=== PATIENT | male | born 1945 | race Caucasian/White ===

== ENCOUNTER → 2020-10-26 | Outpatient (REF) | payer MEDICARE | LOC: M LAB REF 16:41 | PROVIDERS: ATTEND Internal Medicine | DX: R41.89 Other symptoms and signs involving cognitive functions and awareness (principal) ==

== ENCOUNTER → 2020-11-02 | Outpatient (CLI) | payer MEDICARE ==
--- NOTE | 2020-11-02 10:28 | REP ---
INDICATION: COLLARBONE PAIN, S/P FALL COMPARISON: None. TECHNIQUE: PA and lateral. FINDINGS: The mediastinum and cardiac silhouette are normal. The lung juarez are clear and without acute consolidation, effusion, or pneumothorax. The skeletal structures are intact and normal. IMPRESSION: No acute cardiopulmonary process. Skeletal structures are grossly intact and normal. <Electronically signed by Piero Velez > 11/02/20 1024
== END ==
LOC: M PLAIMG 09:53
PROVIDERS: ATTEND Physician Assistant Medical
DX: M25.519 Pain in unspecified shoulder (principal)

== ENCOUNTER 2020-12-07 19:18 | Inpatient (IN) | payer MEDICARE ==
[~2020-12-07] VITALS: Ht 175.3 cm; Wt 103.2 kg
--- NOTE | 2020-12-07 21:05 | REPVR ---
PROCEDURE INFORMATION: Exam: CT Head Without Contrast Exam date and time: 12/07/2020 8:18 PM Age: 74 years old Clinical indication: Injury or trauma; Fall; Blunt trauma (contusions or hematomas) TECHNIQUE: Imaging protocol: Computed tomography of the head without contrast. Radiation optimization: All CT scans at this facility use at least one of these dose optimization techniques: automated exposure control; mA and/or kV adjustment per patient size (includes targeted exams where dose is matched to clinical indication); or iterative reconstruction. COMPARISON: No relevant prior studies available. FINDINGS: Brain: Mild volume loss. Minimal decreased attenuation of the supratentorial white matter is likely secondary to chronic microvascular ischemia. No acute intracranial hemorrhage, midline shift or significant intracranial mass effect. Cerebral ventricles: No hydrocephalus. Paranasal sinuses: Visualized sinuses are unremarkable. No fluid levels. Mastoid air cells: Visualized mastoid air cells are well aerated. Bones/joints: Hyperostosis frontalis interna. Soft tissues: Right parietal scalp soft tissue injury. IMPRESSION: No acute intracranial abnormality. Electronically signed by: Sohail Mackey On 12/07/2020 21:05:09 PM
--- NOTE | 2020-12-07 21:12 | REPVR ---
PROCEDURE INFORMATION: Exam: CT Cervical Spine Without Contrast Exam date and time: 12/07/2020 8:18 PM Age: 74 years old Clinical indication: Injury or trauma; Fall; Blunt trauma TECHNIQUE: Imaging protocol: Computed tomography images of the cervical spine without contrast. Radiation optimization: All CT scans at this facility use at least one of these dose optimization techniques: automated exposure control; mA and/or kV adjustment per patient size (includes targeted exams where dose is matched to clinical indication); or iterative reconstruction. COMPARISON: CR Chest, 2 view PA, Lat 11/02/2020 10:16 AM FINDINGS: Bones/joints: Mild dextroconvex curvature. Non-specific straightening. Grade 1 anterolisthesis of C3 on C4 and C4 on C5. Vertebral body heights are preserved. Moderate degenerative change about the dens. Mild to moderate prevertebral osteophytosis. There are bilateral facet joint degenerative changes. No acute cervical spine fracture. Discs/Spinal canal/Neural foramina: No gross high-grade central canal stenosis within limitations of technique. Multilevel cervical foraminal stenoses. Lungs: Lung apices are normal. Pleural spaces: No visible pneumothorax. Vasculature: Vascular calcification. Soft tissues: Unremarkable. IMPRESSION: No acute cervical spine fracture. Electronically signed by: Sohail Mackey On 12/07/2020 21:11:51 PM
--- NOTE | 2020-12-08 00:24 | REPVR ---
PROCEDURE INFORMATION: Exam: XR Chest Exam date and time: 12/08/2020 12:01 AM Age: 74 years old Clinical indication: Other: Syncope; Additional info: Syncope/near-syncope TECHNIQUE: Imaging protocol: XR of the chest. Views: 1 view. COMPARISON: CR Chest, 2 view PA, Lat 11/02/2020 10:16 AM FINDINGS: Lungs: Right perihilar linear atelectasis or scarring. No consolidation. Pleural spaces: Unremarkable. No pleural effusion. No pneumothorax. Heart/Mediastinum: Stable cardiac silhouette. Vasculature: Elongation of the thoracic aorta with calcification. Diaphragm: Elevation of the right hemidiaphragm. Bones/joints: Unremarkable. IMPRESSION: No acute cardiopulmonary process. Electronically signed by: Sohail Mackey On 12/08/2020 00:23:30 AM
[2020-12-08 01:29] LABS: BASO # 0.1 10^3/uL (0.0-0.2); BASO % 1.1 % (0.0-1.0); EOS # 0.5 10^3/uL (0.0-0.5); EOS % 4.9 % (0.0-3.0); HEMATOCRIT 40.2 % (42.0-52.0); HEMOGLOBIN 13.3 g/dl (13.5-17.5); LYMPH # 3.5 10^3/uL (1.5-5.0); LYMPH % 38.4 % (24.0-44.0); MEAN CORPUSCULAR HEMOGLOBIN 30.1 pg (27.0-33.0); MEAN CORPUSCULAR HGB CONC 33.1 g/dl (32.0-36.5); MONO # 0.9 10^3/uL (0.0-0.8); MONO % 9.7 % (2.0-8.0); NEUTROPHILS # 4.2 10^3/uL (1.5-8.5); NEUTROPHILS % 45.6 % (36.0-66.0); PLATELET COUNT, AUTOMATED 291 10^3/uL (150-450); RED BLOOD COUNT 4.42 10^6/uL (4.30-6.10); WHITE BLOOD COUNT 9.2 10^3/uL (4.0-10.0)
[2020-12-08 01:55] LABS: AMPHETAMINES LEVEL URINE NEGATIVE (NEGATIVE); BARBITURATES URINE NEGATIVE (NEGATIVE); BENZODIAZEPINES URINE NEGATIVE (NEGATIVE); CANNABINOIDS URINE NEGATIVE (NEGATIVE); COCAINE METABOLITE URINE NEGATIVE (NEGATIVE); METHADONE URINE NEGATIVE (NEGATIVE); OPIATES URINE NEGATIVE (NEGATIVE); PHENCYCLIDINE URINE NEGATIVE (NEGATIVE)
[2020-12-08] MEDS ORDERED: AMLO1TAB25 PO ×2 (02:05→06:47)
[2020-12-08] MEDS ORDERED: ESCI5SOL3 PO (02:05)
[2020-12-08] MEDS ORDERED: LEVO125T4 PO (02:05)
[2020-12-08] MEDS ORDERED: METO1TAB32 PO ×2 (02:05→06:47)
[2020-12-08] MEDS ORDERED: METF500T13 PO (02:05)
[2020-12-08] MEDS ORDERED: ASPI81CH33 PO (02:05)
[2020-12-08] MEDS ORDERED: ATOR1TAB21 PO ×2 (02:05→06:47)
[2020-12-08 02:14] LABS: BLOOD UREA NITROGEN 13 MG/DL (7-18); CALCIUM LEVEL 9.4 MG/DL (8.8-10.2); CARBON DIOXIDE LEVEL 30 MEQ/L (21-32); CHLORIDE LEVEL 103 MEQ/L (98-107); CK-MB VALUE MASS 25.7 NG/ML (<3.6); CPK CREATINE PHOSPHOKINASE 852 U/L (39-308); CREATININE FOR GFR 0.68 MG/DL (0.70-1.30); ETHYL ALCOHOL (ETHANOL) < 0.003 % (0.000-0.010); FREE T4 0.95 NG/DL (0.76-1.46); GLOMERULAR FILTRATION RATE > 60.0 (>42); GLUCOSE, FASTING 99 MG/DL (70-100); MB/CK RELATIVE INDEX 3.02 (< OR =4); POTASSIUM SERUM 4.6 MEQ/L (3.5-5.1); SODIUM LEVEL 137 MEQ/L (136-145); TROPONIN I < 0.02 NG/ML (< 0.10)
[2020-12-08 02:26] LABS: RSV AMPLIFICATION NEGATIVE (NEGATIVE)
[2020-12-08] MEDS: HumaLOG INSULIN (NovoLOG) PER UNIT SC SCH ×2 (06:00→12:00)
[2020-12-08] MEDS ORDERED: GLUCOSE 4GM CHEW TABLET PO PRN (06:15)
[2020-12-08] MEDS ORDERED: GLUCAGON INJ 1MG VIAL SC PRN (06:15)
[2020-12-08] MEDS ORDERED: DEXTROSE 50% 50 ML SYRINGE IV PRN (06:15)
--- NOTE | 2020-12-08 06:32 | HPEPDOC ---
[facility] Medical History & Physical Date of Admission Dec 08, 2020 Date of Service: Dec 08, 2020 Attending Physician: LUCIAN PEREZ MD History and Physical CC: Mechanical fall HISTORY OF PRESENT ILLNESS: This is a very pleasant 74-year-old elderly male who presents to [facility] ER with chief complaint of fall. Patient states that he recently moved here from [facility] and likes to walk around the new neighborhood. He states that earlier today when he was walking around the neighborhood going up on an incline he tripped over a rock and fell. He states that everything happened so fast he does not remember how he fell but he did hit the back of his head. He denies losing consciousness. He also denies feeling dizzy, presyncopal or syncopal, vision changes prior to fall. Imaging cervical spine. In the ER patient had head CT without contrast as well as a CT of the cervical spine which did not show any acute abnormalities. He was noted to have elevated CK without any signs of rhabdo. Of note, patient has slow speech and sometimes has difficult time with word finding however patient states that he has had a speech impediment since he was young and that this is his baseline. REVIEW OF SYSTEMS: General: Denies fever, shaking chills, unintentional weight loss HEENT: Denies changes in vision including blurry vision or double vision, headache, or hearing loss nasal congestion or sore throat. Heart: Denies chest pain or chest pressure or discomfort, or palpitations, or lo wer extremity edema Pulm: Denies cough or sputum production or shortness of breath GI: Denies nausea vomiting diarrhea abdominal pain or bloody stools Psych: Denies sadness or loss of interest in doing things, no thoughts of self- harm or suicidal ideation PAST MEDICAL HISTORY: HTN DM2 HLD SURGICAL HISTORY: Thyrodeictomy Bilateral carpel tunnel FAMILY HISTORY: Mother: . COPD Father. . COPD. Lung ca Daughter: healthy SOCIAL HISTORY: 1986 quit smoker, prior 1.5 pack per day hx; social etoh use; denies illicit drug use. Worked as delivery at a [employer] PHYSICAL EXAM: VS: SEE BELOW GENERAL: The patient is a well-developed, well-nourished in no apparent distress. AAOx3 NEURO: No focal neurological deficits, cranial nerves II to XII conducted within normal limits. Strength 5/5 throughout. Sensation intact throughout. Does have low speech with word finding diffi culties. HEENT: Head is normocephalic and atraumatic. Tenderness on palpation of occipital region. Extraocular muscles are intact. Pupils are equal, round, and reactive to light and accommodation. Nares appears normal. Moist mucous membranes. PULM: Clear to auscultation bilaterally. No wheezing, rhonchi or rales appreciated.. CARDIO: Normal S1, S2. no significant murmurs, gallops, rubs or clicks. No signs of peripheral edema ABDOMEN: Soft, nontender, and nondistended. Normal bowel sounds. No significant organomegaly appreciated. EXTREMITIES: No cyanosis, clubbing, rash, lesions. IMAGING: Cervical spine CT without contrast impression: No acute cervical spine fracture Head CT without contrast impression: No acute intracranial abnormality Chest x-ray impression: No acute cardiopulmonary process ASSESSMENT AND PLAN: This is a 74-year-old elderly male who presents to [facility] ER status post mechanical fall. CT head without contrast and CT cervical spine did not show any intracranial bleed or fractures. He is noted to have elevated CK without any signs of rhabdomyolysis. Hospitalist team was asked to admit the patient for further management of his care. Mechanical fall Initial CT brain without contrast not show any acute abnormalities. Patient AAOX3. Will repeat CT in a.m. Neurochecks every 4 hours. Bedrest with fall precautions. PT/OT eval and treat Slow speech with word finding difficulties Patient states this is his baseline as he has a speech impediment since he was young. Although suspicion for an acute stroke is lower on differential, will order MRI, carotid U/S, ECHO- am team to follow up npo until after ST eval and recs Elevated CK Fluids at 100 cc/h. No signs of rhabdomyolysis HTN-continue home meds HLD- hold atorvastatin for now DM2 insulin sliding scale FSBS every 6+ hypoglycemic protocol DVT ppx: Teds SCDs Vital Signs Vital Signs Date Time Temp Pulse Resp B/P (MAP) Pulse Ox O2 Delivery O2 Flow Rate FiO2 12/08/20 05:45 73 169/104 (125) 97 Room Air 12/08/20 05:30 16 12/07/20 19:18 97.6 Laboratory Data Labs 24H Laboratory Tests 2 12/08/20 00:38: Coronavirus (COVID-19)(PCR) NEGATIVE, Influenza Type A (RT-PCR) NEGATIVE, Influenza Type B (RT-PCR) NEGATIVE, Respiratory Syncytial Virus (PCR) NEGATIVE 12/08/20 01:10: Immature Granulocyte % (Auto) 0.3, Neutrophils (%) (Auto) 45.6, Lymphocytes (%) (Auto) 38.4, Monocytes (%) (Auto) 9.7H, Eosinophils (%) (Auto) 4.9H, Basophils (%) (Auto) 1.1H, Neutrophils # (Auto) 4.2, Lymphocytes # (Auto) 3.5, Monocytes # (Auto) 0.9H, Eosinophils # (Auto) 0.5, Basophils # (Auto) 0.1, Nucleated Red Blood Cells % (auto) 0.0, Anion Gap 4L, Glomerular Filtration Rate > 60.0, Calcium Level 9.4, Total Creatine Kinase 852H, Creatine Kinase MB 25.7H, Creatine Kinase MB Relative Index 3.02, Troponin I < 0.02, Thyroid Stimulating Hormone (TSH) 4.970H, Free Thyroxine 0.95, Urine Opiates Screen NEGATIVE, Urine Methadone Screen NEGATIVE, Urine Barbiturates Screen NEGATIVE, Urine Phencyclidine Screen NEGATIVE, Urine Amphetamines Screen NEGATIVE, Urine Benzodiazepines Screen NEGATIVE, Urine Cocaine Metabolite Screen NEGATIVE, Urine Cannabinoids Screen NEGATIVE, Ethyl Alcohol Level < 0.003 12/08/20 01:31: Bedside Glucose (Misc Panel) 99 CBC/BMP Laboratory Tests 12/08/20 01:10 Home Medications Scheduled Amlodipine Besylate (Amlodipine Besylate) 10 Mg Tablet, 1 TAB PO DAILY Aspirin (Aspirin) 81 Mg Tab.chew, 1 TAB PO DAILY for pain Atorvastatin Calcium (Atorvastatin Calcium) 20 Mg Tablet, 20 MG PO DAILY Escitalopram Oxalate (Escitalopram Oxalate) 5 Mg/5 Ml Solution, 5 MG PO DAILY Levothyroxine Sodium (Levothyroxine Sodium) 125 Mcg Tablet, 1 TAB PO DAILY Metformin HCl (Metformin HCl) 500 Mg Tablet, 500 MG PO BID Metoprolol Succinate (Metoprolol Succinate) 25 Mg Tab.er.24h, 1 TAB PO DAILY Allergies Coded Allergies: No Known Allergies (Unverified , 12/07/20) GME ATTESTATION GME ATTESTATION My faculty preceptor for this patient encounter was physically present during the encounter and was fully available. All aspects of the patient interview, examination, medical decision making process, and medical care plan development were reviewed and approved by the faculty preceptor. The faculty preceptor is aware and concurs with the plan as stated in the body of this note and will a ttest to such by his/her cosignature. Honorio Whaley DO Dec 08, 2020 06:32
[2020-12-08] MEDS ORDERED: SYNT125T PO (06:47)
[2020-12-08] MEDS ORDERED: FLOM0.4C39 PO (06:47)
[2020-12-08] MEDS ORDERED: LEXA5TAB13 PO (06:47)
[2020-12-08] MEDS ORDERED: ASPI-161 PO (06:47)
[2020-12-08] MEDS ORDERED: MAGN1TAB26 PO (06:47)
[2020-12-08] MEDS ORDERED: METF-839 PO (06:47)
[2020-12-08] MEDS ORDERED: MIRT1TAB PO (06:47)
[2020-12-08] MEDS ORDERED: HOME MED LIST COMPLETE! XX SCH (06:50)
[2020-12-08 07:39] LABS: CK-MB VALUE MASS 20.4 NG/ML (<3.6); CPK CREATINE PHOSPHOKINASE 841 U/L (39-308); MB/CK RELATIVE INDEX 2.43 (< OR =4); TROPONIN I < 0.02 NG/ML (< 0.10)
--- NOTE | 2020-12-08 07:55 | ECGEPIP ---
[facility] - ED Test Date: 2020-12-08 Pat Name: HAYDEN HORN Department: Room: [place] [address] Gender: Male Director [employer]: DIANELYS MELLOB: 1945 Requested By: SHAKIRA Reeder Order Number: [id number] Reading MD: Jannette Corona Measurements Intervals [place] Rate: 66 P: 62 HI: 280 QRS: -27 QRSD: 104 T: 127 QT: 440 QTc: 461 Interpretive Statements Sinus rhythm with 1st degree AV block Possible Left atrial enlargement Left ventricular hypertrophy with repolarization abnormality ( R in aVL ) vs i ischemia, clinical correlation no prior Electronically Signed on 12-08-2020 7:55:27 EDT by Jannette Corona
--- NOTE | 2020-12-08 08:07 | REPVR ---
PROCEDURE INFORMATION: Exam: CT Head Without Contrast Exam date and time: 12/08/2020 7:30 AM Age: 74 years old Clinical indication: Injury or trauma; Fall; Concussion/head injury; Consciousness not specified; Injury details: F/u TECHNIQUE: Imaging protocol: Computed tomography of the head without contrast. Radiation optimization: All CT scans at this facility use at least one of these dose optimization techniques: automated exposure control; mA and/or kV adjustment per patient size (includes targeted exams where dose is matched to clinical indication); or iterative reconstruction. COMPARISON: CT Head without contrast 12/07/2020 8:11 PM FINDINGS: Brain: Normal. No hemorrhage. Unremarkable white matter. No mass effect. Cerebral ventricles: The ventricles and sulci are stable in configuration. Paranasal sinuses: Visualized sinuses are unremarkable. No fluid levels. Mastoid air cells: Visualized mastoid air cells are well aerated. Bones/joints: There is again hyperostosis frontalis interna. No skull fracture is identified. Soft tissues: There is again a right parietal scalp contusion. IMPRESSION: No CT evidence for acute intracranial abnormality or significant change since one day prior. Electronically signed by: Da Flynn On 12/08/2020 08:07:19 AM
--- NOTE | 2020-12-08 08:07 | REP ---
INDICATION: FALL COMPARISON: None. TECHNIQUE: Poole scale and color Doppler evaluation using linear high frequency transducer Findings: FINDINGS: Two-dimensional poole scale and color images demonstrate normal arterial lumen with laminar flow and no appreciable narrowing. Color Doppler interrogation demonstrates normal arterial wave patterns and velocities with no significant spectral broadening. Normal flow direction is appreciated in the bilateral vertebral arteries. ICA peak systolic velocity: Right 55.8 cm/s; Left 57.8 cm/s ICA diastolic velocity: Right 18.0 cm/s; Left 21.2 cm/s ECA peak systolic velocity: Right 70.0 cm/s; Left 65.9 cm/s CCA peak systolic velocity: Right 60.3 cm/s; Left 55.8 cm/s ICA/CCA ratio: Right 0.93 cm/s; Left 1.04 cm/s IMPRESSION: No hemodynamically significant areas of narrowing or stenosis appreciated. Based on set standards narrowing falls within the less than 50% range. <Electronically signed by Piero Velez > 12/08/20 0804
[2020-12-08 08:30] VITALS: BP 152/90
[2020-12-08] MEDS: NS 1,000 ML IV SCH ×3 (08:45→21:27)
--- NOTE | 2020-12-08 13:20 | REPVR ---
PROCEDURE INFORMATION: Exam: MR Head Without Contrast Exam date and time: 12/08/2020 12:27 PM Age: 74 years old Clinical indication: Injury or trauma; Blunt trauma (contusions or hematomas); Without loss of consciousness; Injury date: 12/07/20; Injury details: PT states HX of loss of balance, left side weakness and recent fall yesterday evening, ; additional info: R/O CVA TECHNIQUE: Imaging protocol: MR of the head without contrast. COMPARISON: CT Head without contrast 12/08/2020 6:01 AM FINDINGS: Brain: The diffusion weighted images demonstrate no evidence for acute infarct. The cerebellar tonsils are normal in position. The major intracranial vascular flow voids appear grossly patent. There are mild degrees of increased signal in the periventricular white matter with a few tiny foci of scattered increased signal in the deep subcortical white matter bilaterally, most suggestive of chronic microvascular ischemic disease in a patient of this age. No intracranial hemorrhage or extraaxial collection is identified. There is no significant intracranial mass effect, and no mass is identified. Small area of encephalomalacia in the left cerebellum suggests remote infarct here. Cerebral ventricles: The ventricles and sulci are stable in configuration. Bones/joints: Hyperostosis frontalis interna is again noted. Paranasal sinuses: Normal as visualized. No acute sinusitis. Mastoid air cells: Normal as visualized. No mastoid effusion. Orbital cavity: Unremarkable. Soft tissues: There is again evidence of a right parietal scalp contusion. IMPRESSION: No evidence for acute infarct, hemorrhage or mass. Chronic findings as described. Electronically signed by: Da Flynn On 12/08/2020 13:19:47 PM
[2020-12-08 17:10] VITALS: BP 158/58
[2020-12-08 20:30] LABS: BLOOD UREA NITROGEN 8 MG/DL (7-18); CALCIUM LEVEL 8.9 MG/DL (8.8-10.2); CARBON DIOXIDE LEVEL 25 MEQ/L (21-32); CHLORIDE LEVEL 109 MEQ/L (98-107); CREATININE FOR GFR 0.65 MG/DL (0.70-1.30); GLOMERULAR FILTRATION RATE > 60.0 (>42); GLUCOSE, FASTING 97 MG/DL (70-100); POTASSIUM SERUM 3.9 MEQ/L (3.5-5.1); SODIUM LEVEL 140 MEQ/L (136-145)
[2020-12-08] MEDS ORDERED: HumaLOG INSULIN (NovoLOG) PER UNIT SC SCH (21:00)
[2020-12-08] MEDS ORDERED: MIRTAZAPINE 7.5MG PER 1/2 TABLET PO SCH (21:00)
[2020-12-08 21:06] LABS: APPEARANCE, URINE CLEAR (CLEAR); BACTERIA, URINE AUTO NEGATIVE (NEGATIVE); BILIRUBIN, URINE AUTO NEGATIVE (NEGATIVE); BLOOD, URINE BLOOD NEGATIVE (NEGATIVE); COLOR, URINE STRAW (YELLOW); GLUCOSE, URINE (UA) AUTO NEGATIVE (NEGATIVE); KETONE, URINE AUTO NEGATIVE (NEGATIVE); LEUKOCYTE ESTERASE, URINE AUTO NEGATIVE (NEGATIVE); NITRITE, URINE AUTO NEGATIVE (NEGATIVE); PROTEIN, URINE AUTO NEGATIVE (NEGATIVE); RBC, URINE AUTO 0 /HPF (0-3); SPECIFIC GRAVITY URINE AUTO 1.003 (1.002-1.035); SQUAMOUS EPITHELIAL CELL UR AU 0 /HPF (0-6); UROBILINOGEN, URINE AUTO 0.2 mg/dL (0.0-2.0); WBC, URINE AUTO 0 /HPF (0-3)
[2020-12-08 22:00] VITALS: BP 125/50
[2020-12-09 06:00] VITALS: BP 150/70
[2020-12-09] MEDS ORDERED: LEVOTHYROXINE 125MCG TABLET (0.125MG) PO SCH (06:00)
[2020-12-09 06:32] LABS: HEMATOCRIT 37.8 % (42.0-52.0); HEMOGLOBIN 12.7 g/dl (13.5-17.5); MEAN CORPUSCULAR HEMOGLOBIN 30.5 pg (27.0-33.0); MEAN CORPUSCULAR HGB CONC 33.6 g/dl (32.0-36.5); MEAN CORPUSCULAR VOLUME 90.9 fl (80.0-96.0); PLATELET COUNT, AUTOMATED 115 10^3/uL (150-450); RED BLOOD COUNT 4.16 10^6/uL (4.30-6.10)
[2020-12-09 06:47] LABS: BLOOD UREA NITROGEN 9 MG/DL (7-18); CALCIUM LEVEL 8.6 MG/DL (8.8-10.2); CARBON DIOXIDE LEVEL 23 MEQ/L (21-32); CHLORIDE LEVEL 110 MEQ/L (98-107); GLOMERULAR FILTRATION RATE > 60.0 (>42); GLUCOSE, FASTING 91 MG/DL (70-100); POTASSIUM SERUM 4.1 MEQ/L (3.5-5.1); SODIUM LEVEL 141 MEQ/L (136-145)
[2020-12-09] MEDS: HumaLOG INSULIN (NovoLOG) PER UNIT SC SCH ×2 (07:30→12:00)
[2020-12-09] MEDS ORDERED: ATORVASTATIN 20 MG TAB PO SCH (09:00)
[2020-12-09] MEDS ORDERED: ASPIRIN 81MG ENTERIC TABLET PO SCH (09:00)
[2020-12-09] MEDS ORDERED: TAMSULOSIN 0.4 MG CAP PO SCH (09:00)
[2020-12-09] MEDS ORDERED: ESCITALOPRAM OXALATE 5MG TABLET (LEXAPRO) PO SCH (09:00)
[2020-12-09] MEDS ORDERED: METOPROLOL SUCC *XL* 25MG TAB (TopROL *XL*) PO SCH (09:00)
[2020-12-09 09:49] VITALS: BP 154/90
[2020-12-09] MEDS ORDERED: FLUBLOK(EGG FREE)(QUAD)INFLUENZA VACC 0.5ML SYRINGE 18YRS & OLDER IM ONE (12:00)
--- NOTE | 2020-12-09 14:58 | DS.PDOC ---
Discharge Summary General Date of Admission Dec 08, 2020 at 06:10 Date of Discharge 12/09/20 Discharge Summary PROCEDURES PERFORMED DURING STAY: [None]. DISCHARGE DIAGNOSES: #HTN #DM #HLD COMPLICATIONS/CHIEF COMPLAINT: FALL. HISTORY OF PRESENT ILLNESS: This is a very pleasant 74-year-old elderly male who presents to [facility] ER with chief complaint of fall. Patient states that he recently moved here from [facility] and likes to walk around the new neighborhood. He states that earlier today when he was walking around the neighborhood going up on an incline he tripped over a rock and fell. He states that everything happened so fast he does not remember how he fell but he did hit the back of his head. He denies losing consciousness. He also denies feeling dizzy, presyncopal or syncopal, vision changes prior to fall. Imaging cervical spine. In the ER patient had head CT without contrast as well as a CT of the cervical spine which did not show any acute abnormalities. He was noted to have elevated CK without any signs of rhabdo. Of note, patient has slow speech and sometimes has diff icult time with word finding however patient states that he has had a speech impediment since he was young and that this is his baseline. HOSPITAL COURSE: Patient admitted for further evaluation and treatment. Patient seen by physical therapy with recommendations for discharge home. Patient had no further issues with dizziness, syncope or presyncope. Hospital stay was otherwise unremarkable. DISCHARGE MEDICATIONS: Please see below. ALLERGIES: Please see below. PHYSICAL EXAMINATION ON DISCHARGE: Vital Signs: reviewed General: NAD, sitting comfortably in chair HEENT: NC/AT, EOMI Chest: lungs CTA B/L Heart: +S1S2, RRR Abd: soft, NT, ND, +BS Ext: no edema Skin: no rashes Psych: AAOx3 LABORATORY DATA: Please see below. ACTIVITY: [As tolerated]. DISPOSITION: 01 Home, Self-Care. DISCHARGE INSTRUCTIONS: 1. Follow up PCP in 3-5 days DISCHARGE CONDITION: [Stable]. TIME SPENT ON DISCHARGE: 35 minutes. Vital Signs/I&Os Vital Signs Date Time Temp Pulse Resp B/P (MAP) Pulse Ox O2 Delivery O2 Flow Rate FiO2 12/09/20 09:49 87 154/90 12/09/20 06:00 97.0 18 96 Room Air I&O- Last 24 Hours up to 6 AM 12/09/20 05:59 Intake Total 1920 ml Output Total 1300 ml Balance 620 ml Laboratory Data Labs 24H Laboratory Tests 2 12/08/20 17:19: Bedside Glucose (Misc Panel) 91 12/08/20 19:41: Anion Gap 6L, Glomerular Filtration Rate > 60.0, Calcium Level 8.9, Magnesium Level 2.0 12/08/20 20:56: Urine Color STRAW, Urine Appearance CLEAR, Urine pH 7.0, Urine Specific [place] 1.003, Urine Protein NEGATIVE, Urine Glucose (Auto)(UA) NEGATIVE, Urine Ketones (Auto) NEGATIVE, Urine Blood NEGATIVE, Urine Nitrite NEGATIVE, Urine Bilirubin NEGATIVE, Urine Urobilinogen 0.2, Urine Leukocyte Esterase (Auto) NEGATIVE, Urine WBC (Auto) 0, Urine RBC (Auto) 0, Urine Hyaline Casts (Auto) 0, Urine Bacteria (Auto) NEGATIVE, Urine Squamous Epithelial Cells 0, Urine Sperm (Auto) 12/08/20 21:32: Bedside Glucose (Misc Panel) 93 12/09/20 05:39: Nucleated Red Blood Cells % (auto) 0.0, Anion Gap 8, Glomerular Filtration Rate > 60.0, Calcium Level 8.6L CBC/BMP Laboratory Tests 12/08/20 19:41 12/09/20 05:39 FSBS Laboratory Tests Test 12/08/20 17:19 12/08/20 21:32 Range/Units Bedside Glucose (Misc Panel) 91 93 83-110 MG/DL Discharge Medications Scheduled Amlodipine Besylate (Amlodipine Besylate) 10 Mg Tablet, 10 MG PO DAILY, (Reported) Aspirin (Aspirin EC) 81 Mg Tablet.dr, 81 MG PO DAILY, (Reported) Atorvastatin Calcium (Atorvastatin Calcium) 20 Mg Tablet, 20 MG PO DAILY, (Reported) Escitalopram Oxalate (Lexapro) 5 Mg Tablet, 5 MG PO DAILY, (Reported) Levothyroxine Sodium (Synthroid) 125 Mcg Tablet, 125 MCG PO DAILY, (Reported) Magnesium Oxide (Magnesium Oxide) 400 Mg Tablet, 400 MG PO BID, (Reported) Metformin HCl (Metformin HCl) 500 Mg Tablet, 500 MG PO BID, (Reported) Metoprolol Succinate (Metoprolol Succinate) 25 Mg Tab.er.24h, 25 MG PO DAILY, ( Reported) Mirtazapine (Mirtazapine) 7.5 Mg Tablet, 7.5 MG PO QHS, (Reported) Tamsulosin HCl (Flomax) 0.4 Mg Capsule, 0.4 MG PO DAILY, (Reported) Allergies Coded Allergies: No Known Allergies (Unverified , 12/07/20) ELIE RAMESH MD Dec 09, 2020 14:58
--- NOTE | 2020-12-10 11:01 | ECGEPIP ---
[facility] Test Date: 2020-12-09 Pat Name: HAYDEN HORN Department: Room: [place] [address] Gender: Male [employer]: ECG : 1945 Requested By: Honorio Whaley Order Number: [id number] Reading MD: Juan Francisco Ochoa Measurements Intervals [place] Rate: 83 P: 59 MO: 256 QRS: -30 QRSD: 108 T: 108 QT: 378 QTc: 444 Interpretive Statements Sinus rhythm with 1st degree AV block Possible Left atrial enlargement Left axis deviation Left ventricular hypertrophy with repolarization abnormality ( R in aVL ) Consider anterolateral myocardial ischemia. No significant change compared with 12/08/2020. Electronically Signed on 12-10-2020 11:00:50 EDT by Juan Francisco Ochoa
--- NOTE | 2020-12-10 20:48 | ECHO ---
ECHOCARDIOGRAM DATE OF PROCEDURE: 12/08/2020 Age: 74 Gender: Male Height: Weight: REFERRING PHYSICIAN: Dr. John Davidson PATIENT LOCATION: Room 4202 REASON FOR TESTING: Syncope 2D MEASUREMENTS: IVS 1.5 cm LV 3.8 cm LVPW 1.5 cm LA 3.2 cm Aorta 3.5 cm DOPPLER MEASUREMENTS: Peak velocity across the aortic valve 1.9 m/s Peak velocity across the LVOT 0.88 m/s Peak gradient across the aortic valve 14 mmHg Mean gradient across the aortic valve 7 mmHg Mitral E 0.76 Mitral A 1.1 with a ratio of 0.7 2D COMMENTS: 1. Moderately increased left ventricular wall thickness with normal left ventricular size and normal global left ventricular systolic function. The estimated left ventricular systolic ejection fraction is 60% to 65%. 2. Normal left atrial. 3. Normal right atrium and right ventricle. 4. The atrial septum appeared to be normal without evidence of defect or shunt. 5. Normal aortic root. 6. No pericardial effusion seen. 7. Mildly calcified aortic valve with normal leaflet excursion. 8. Mildly calcified mitral annulus with normal anterior mitral valve leaflet motion. Normal tricuspid valve. The pulmonic valve was not well visualized. 9. The inferior vena cava was not well visualized. DOPPLER: No significant valvular regurgitation detected. Abnormal relaxation pattern was noted across the mitral valve leaflets as well as the mitral valve annulus, consistent with features of grade 1 left ventricular diastolic dysfunction. IMPRESSION: 1. Normal global left ventricular systolic function with moderate concentric left ventricular hypertrophy. There are some features of grade 1 left ventricular diastolic dysfunction manifested by abnormal relaxation. 2. Aortic valve sclerosis which reveals aortic stenosis but no aortic regurgitation. 3. Isolated mitral annulus calcification. No evidence of mitral regurgitation or mitral stenosis.
== END 2020-12-09 12:42 | disposition home or self-care (01) | DRG 93 ==
LOC: M ED 19:18 → M ED INP 12-08 06:10 → ENRESERV 12-08 06:24 → M MSPAV 12-08 08:27
PROVIDERS: ADMIT Family Medicine; ATTEND Internal Medicine
DX: R29.6 Repeated falls (principal); S00.93XA Contusion of unspecified part of head, initial encounter; I10 Essential (primary) hypertension; E11.9 Type 2 diabetes mellitus without complications; E78.5 Hyperlipidemia, unspecified; Z90.89 Acquired absence of other organs; W01.0XXA Fall on same level from slipping, tripping and stumbling without subsequent striking against object, initial encounter; Y92.480 Sidewalk as the place of occurrence of the external cause; Z20.822 Contact with and (suspected) exposure to COVID-19; Z79.82 Long term (current) use of aspirin; Z79.84 Long term (current) use of oral hypoglycemic drugs; Z79.899 Other long term (current) drug therapy

== ENCOUNTER → 2021-04-07 | Outpatient (CLI) | payer MEDICARE ==
[~2021-04-07] MED LIST: AMLO1TAB25 PO; ASPI-161 PO; ASPI81CH33 PO; ATOR1TAB21 PO; ESCI5SOL3 PO; FLOM0.4C39 PO; LEVO125T4 PO; LEXA5TAB13 PO; MAGN1TAB26 PO; METF-839 PO; METF500T13 PO; METO1TAB32 PO; MIRT1TAB PO; SYNT125T PO
== END ==
LOC: M WUC 10:43
PROVIDERS: ATTEND Internal Medicine
DX: R05.9 Cough, unspecified (principal); R06.00 Dyspnea, unspecified

== ENCOUNTER → 2021-06-02 | Outpatient (CLI) | payer MEDICARE ==
[~2021-06-02] MED LIST changes: +APPLCAP PO; +E-Z-GAS II EFFERVESCENT PACKET (SODIUM BICARB./CITRIC ACID/SIMETHICONE) As Ordered ONE; +E-Z-HD 98% w/w 340GM SUSP BTL As Ordered ONE; +E-Z-PAQUE 96% w/w SUSP 176GM BTL As Ordered ONE; +LEXA1TAB PO; +OMEP-173 PO
== END ==
LOC: M RAD 09:38
PROVIDERS: ATTEND Internal Medicine Gastroenterology
DX: R13.12 Dysphagia, oropharyngeal phase (principal)

== ENCOUNTER → 2021-06-05 | Outpatient (CLI) | payer MEDICARE ==
[~2021-06-05] MED LIST changes: -E-Z-GAS II EFFERVESCENT PACKET (SODIUM BICARB./CITRIC ACID/SIMETHICONE) As Ordered ONE; -E-Z-HD 98% w/w 340GM SUSP BTL As Ordered ONE; -E-Z-PAQUE 96% w/w SUSP 176GM BTL As Ordered ONE
== END ==
LOC: M LABSMTC 09:46
PROVIDERS: ATTEND Anesthesiology
DX: Z11.52 Encounter for screening for COVID-19 (principal); Z20.822 Contact with and (suspected) exposure to COVID-19

== ENCOUNTER 2021-06-09 13:45 | Day surgery (SDC) | payer MEDICARE ==
[~2021-06-09] VITALS: Ht 175.3 cm; Wt 102.5 kg
[~2021-06-09 13:45] MED LIST changes: +LIDOCAINE 2% 100MG/5ML SDV (FOR ANES.) As Ordered ONE; +NS 1,000 ML IV ONE; +propofoL 200 MG/20 ML VIAL As Ordered ONE
[2021-06-09] MEDS ORDERED: LABETALOL 100MG/20ML VIAL As Ordered ONE (15:18)
[2021-06-09 15:47] VITALS: BP 202/91
[2021-06-09] MEDS ORDERED: LABETALOL 100MG/20ML VIAL IV PRN (16:15)
== END 2021-06-09 16:32 | disposition home or self-care (01) ==
LOC: M OPP 13:45
PROVIDERS: ATTEND Internal Medicine Gastroenterology
DX: K29.70 Gastritis, unspecified, without bleeding (principal); R13.12 Dysphagia, oropharyngeal phase; R13.13 Dysphagia, pharyngeal phase; K74.60 Unspecified cirrhosis of liver; Z79.82 Long term (current) use of aspirin; Z79.899 Other long term (current) drug therapy; Z87.891 Personal history of nicotine dependence

== ENCOUNTER → 2021-11-06 | Outpatient (REF) | payer MEDICARE ==
[~2021-11-06] MED LIST changes: -LIDOCAINE 2% 100MG/5ML SDV (FOR ANES.) As Ordered ONE; -NS 1,000 ML IV ONE; -propofoL 200 MG/20 ML VIAL As Ordered ONE
[2021-11-06 19:42] LABS: ATYPICAL LYMPH 1 % (0-5); BASOPHILS 2 % (0-1); EOSINOPHILS 4 % (0-3); LYMPHOCYTES 65 % (16-44); MONOCYTES 9 % (0-5); NEUTROPHILS 18 % (28-66)
[2021-11-06 19:43] LABS: PLATELET ESTIMATE NORMAL (NORMAL)
== END ==
LOC: M LAB REF 16:18
PROVIDERS: ATTEND Internal Medicine
DX: D72.9 Disorder of white blood cells, unspecified (principal)

== ENCOUNTER → 2021-11-08 | Outpatient (REF) | payer MEDICARE ==
[2021-11-08 10:53] LABS: BASO # 0.1 10^3/uL (0.0-0.2); BASO % 1.3 % (0.0-1.0); EOS # 0.2 10^3/uL (0.0-0.5); HEMATOCRIT 39.8 % (42.0-52.0); HEMOGLOBIN 13.5 g/dl (13.5-17.5); LYMPH # 3.2 10^3/uL (1.5-5.0); LYMPH % 59.4 % (24.0-44.0); MEAN CORPUSCULAR HEMOGLOBIN 31.2 pg (27.0-33.0); MEAN CORPUSCULAR HGB CONC 33.9 g/dl (32.0-36.5); MEAN CORPUSCULAR VOLUME 91.9 fl (80.0-96.0); MONO # 0.5 10^3/uL (0.0-0.8); MONO % 9.6 % (2.0-8.0); NEUTROPHILS # 1.4 10^3/uL (1.5-8.5); NEUTROPHILS % 26.5 % (36.0-66.0); PLATELET COUNT, AUTOMATED 296 10^3/uL (150-450); RED BLOOD COUNT 4.33 10^6/uL (4.30-6.10); WHITE BLOOD COUNT 5.3 10^3/uL (4.0-10.0)
== END ==
LOC: M LAB REF 10:05
PROVIDERS: ATTEND Internal Medicine
DX: D72.9 Disorder of white blood cells, unspecified (principal)

== ENCOUNTER → 2022-04-24 | Outpatient (REF) | payer MEDICARE ==
[2022-04-24 10:52] LABS: BASO # 0.1 10^3/uL (0.0-0.2); EOS # 0.2 10^3/uL (0.0-0.5); EOS % 3.8 % (0.0-3.0); HEMATOCRIT 41.6 % (42.0-52.0); HEMOGLOBIN 13.2 g/dl (13.5-17.5); LYMPH % 48.2 % (24.0-44.0); MEAN CORPUSCULAR HEMOGLOBIN 29.7 pg (27.0-33.0); MEAN CORPUSCULAR HGB CONC 31.7 g/dl (32.0-36.5); MEAN CORPUSCULAR VOLUME 93.7 fl (80.0-96.0); MONO # 0.5 10^3/uL (0.0-0.8); NEUTROPHILS # 2.4 10^3/uL (1.5-8.5); NEUTROPHILS % 38.7 % (36.0-66.0); PLATELET COUNT, AUTOMATED 268 10^3/uL (150-450); RED BLOOD COUNT 4.44 10^6/uL (4.30-6.10); WHITE BLOOD COUNT 6.3 10^3/uL (4.0-10.0)
== END ==
LOC: M LAB REF 10:05
PROVIDERS: ATTEND Internal Medicine
DX: D72.9 Disorder of white blood cells, unspecified (principal); D64.9 Anemia, unspecified

== ENCOUNTER 2022-07-30 12:57 | Emergency (ER) | payer OTHER, MEDICARE ==
[~2022-07-30] VITALS: Ht 175.3 cm; Wt 102.3 kg
[2022-07-30] MEDS ORDERED: ACETAMINOPHEN TAB 650MG DOSE (2X325MG) PO ONE (13:25)
[2022-07-30 14:53] VITALS: BP 217/109
== END 2022-07-30 15:02 | disposition home or self-care (01) ==
LOC: M ED 12:57
DX: S93.401A Sprain of unspecified ligament of right ankle, initial encounter (principal); S92.491A Other fracture of right great toe, initial encounter for closed fracture; W10.8XXA Fall (on) (from) other stairs and steps, initial encounter; Y92.009 Unspecified place in unspecified non-institutional (private) residence as the place of occurrence of the external cause; Y93.01 Activity, walking, marching and hiking; Y99.8 Other external cause status; I25.10 Atherosclerotic heart disease of native coronary artery without angina pectoris; I10 Essential (primary) hypertension; Z85.46 Personal history of malignant neoplasm of prostate; K21.9 Gastro-esophageal reflux disease without esophagitis; E03.9 Hypothyroidism, unspecified; Z79.82 Long term (current) use of aspirin; Z79.899 Other long term (current) drug therapy

== ENCOUNTER → 2022-11-07 | Outpatient (REF) | payer MEDICARE ==
[2022-11-07 10:04] LABS: BASO # 0.1 10^3/uL (0.0-0.2); BASO % 1.7 % (0.0-1.0); EOS # 0.2 10^3/uL (0.0-0.5); EOS % 3.4 % (0.0-3.0); HEMATOCRIT 41.9 % (42.0-52.0); HEMOGLOBIN 13.7 g/dl (13.5-17.5); LYMPH # 2.7 10^3/uL (1.5-5.0); LYMPH % 56.7 % (24.0-44.0); MEAN CORPUSCULAR HGB CONC 32.7 g/dl (32.0-36.5); MEAN CORPUSCULAR VOLUME 94.8 fl (80.0-96.0); MONO # 0.4 10^3/uL (0.0-0.8); NEUTROPHILS # 1.4 10^3/uL (1.5-8.5); PLATELET COUNT, AUTOMATED 265 10^3/uL (150-450); RED BLOOD COUNT 4.42 10^6/uL (4.30-6.10); WHITE BLOOD COUNT 4.8 10^3/uL (4.0-10.0)
== END ==
LOC: M LAB REF 09:31
PROVIDERS: ATTEND Internal Medicine
DX: D72.9 Disorder of white blood cells, unspecified (principal)

== ENCOUNTER 2023-03-06 23:28 | Inpatient (IN) | payer MEDICARE ==
[~2023-03-06] VITALS: Ht 175.3 cm; Wt 104.2 kg
[2023-03-07] VITALS (8 sets, daily range): BP systolic 117–146; BP diastolic 52–79; TEMP 97.5–98.1; O2SAT 89–94
[2023-03-07 00:08] LABS: BASO # 0.1 10^3/uL (0.0-0.2); BASO % 0.6 % (0.0-1.0); EOS % 0.3 % (0.0-3.0); HEMATOCRIT 36.7 % (42.0-52.0); HEMOGLOBIN 12.3 g/dl (13.5-17.5); MEAN CORPUSCULAR HEMOGLOBIN 31.1 pg (27.0-33.0); MEAN CORPUSCULAR HGB CONC 33.5 g/dl (32.0-36.5); MEAN CORPUSCULAR VOLUME 92.9 fl (80.0-96.0); MONO # 0.6 10^3/uL (0.0-0.8); MONO % 7.1 % (2.0-8.0); NEUTROPHILS # 5.1 10^3/uL (1.5-8.5); NEUTROPHILS % 65.5 % (36.0-66.0); PLATELET COUNT, AUTOMATED 209 10^3/uL (150-450); RED BLOOD COUNT 3.95 10^6/uL (4.30-6.10); WHITE BLOOD COUNT 7.7 10^3/uL (4.0-10.0)
[2023-03-07] MEDS ORDERED: ACETAMINOPHEN TAB 650MG DOSE (2X325MG) PO ONE (00:25)
[2023-03-07 00:32] LABS: CK-MB VALUE MASS 8.3 NG/ML (<3.6)
[2023-03-07 00:33] LABS: ALBUMIN 3.6 G/DL (3.2-5.2); ALKALINE PHOSPHATASE 66 U/L (46-116); ALT/SGPT 48 U/L (7.0-40); AST/SGOT 47 U/L (<34); BILIRUBIN,DIRECT 0.3 MG/DL (<0.4); BILIRUBIN,TOTAL 0.8 MG/DL (0.3-1.2); BLOOD UREA NITROGEN 8 MG/DL (9-23); CARBON DIOXIDE LEVEL 24 MMOL/L (20-31); CHLORIDE LEVEL 102 MMOL/L (98-107); CREATININE FOR GFR 0.47 MG/DL (0.70-1.30); GLOMERULAR FILTRATION RATE > 60.0 (>42); GLUCOSE, FASTING 119 MG/DL (74-106); POTASSIUM SERUM 4.3 MMOL/L (3.5-5.1); SODIUM LEVEL 135 MMOL/L (136-145)
[2023-03-07 00:36] LABS: CPK CREATINE PHOSPHOKINASE 752 U/L (46-171)
[2023-03-07] MEDS ORDERED: IPRATROPIUM 0.5MG/ALBUTEROL 2.5MG INH SOL UD 3ML (DUONEB) NEB ONE ×2 (01:00)
[2023-03-07] MEDS ORDERED: dexAMETHasone 20MG/5ML VIAL IV ONE (01:10)
[2023-03-07] MEDS ORDERED: COMBIVENT RESPIMAT 100-20MCG INHALER 4GM INH STA (01:36)
[2023-03-07] MEDS ORDERED: ALBUTEROL 90 MCG/ACT 8GM HFA INHALER INH PRN (02:30)
[2023-03-07] MEDS ORDERED: NS 500 ML IV SCH (02:30)
[2023-03-07] MEDS ORDERED: GLUCOSE 4GM CHEW TABLET PO PRN (02:40)
[2023-03-07] MEDS ORDERED: DEXTROSE 50% 50ML SYRINGE IV PRN (02:40)
[2023-03-07] MEDS ORDERED: GLUCAGON INJ 1MG VIAL SC PRN (02:40)
[2023-03-07 02:56] LABS: INR 1.12; PROTHROMBIN TIME 14.1 SECONDS (12.5-14.5)
[2023-03-07 02:57] LABS: PARTIAL THROMBOPLASTIN TIME 40.8 SECONDS (24.8-34.2)
[2023-03-07] MEDS ORDERED: ISOVUE-370 76% 100ML VIAL As Ordered ONE ×2 (02:58→03:15)
[2023-03-07 03:00] LABS: MAGNESIUM LEVEL 1.5 MG/DL (1.8-2.4)
[2023-03-07 03:01] LABS: LDH LACTATE DEHYDROGENASE 177 U/L (120-246)
[2023-03-07 03:01] LABS: D-DIMER QUANT 1.11 ug/mL (<0.5)
[2023-03-07 03:11] LABS: PROCALCITONIN <0.04 ng/ml
[2023-03-07] MEDS ORDERED: REMDESIVIR 200 MG in NS 250 ML IV ONE (05:00)
[2023-03-07] MEDS ORDERED: ACETAMINOPHEN TAB 650MG DOSE (2X325MG) PO PRN (06:00)
[2023-03-07] MEDS ORDERED: LEXA5TAB13 PO (06:26)
[2023-03-07] MEDS ORDERED: TURM500C PO (06:26)
[2023-03-07] MEDS ORDERED: VITA1CAP14 PO (06:26)
[2023-03-07] MEDS ORDERED: HOME MED LIST COMPLETE! XX SCH (06:30)
[2023-03-07] MEDS: INSULIN LISPRO (NovoLOG) PER UNIT SC SCH ×4 (09:05→19:31)
[2023-03-07] MEDS: ENOXAPARIN 40MG/0.4ML SYRINGE (J1650 PER 10MG) SC SCH (09:06)
[2023-03-08] VITALS (9 sets, daily range): BP systolic 139–178; BP diastolic 74–105; TEMP 97.3–98.4; O2SAT 89–96
[2023-03-08] MEDS: REMDESIVIR 100 MG in NS 250 ML IV SCH (05:42)
[2023-03-08 06:33] LABS: ALBUMIN 3.1 G/DL (3.2-5.2); ALKALINE PHOSPHATASE 56 U/L (46-116); ALT/SGPT 45 U/L (7.0-40); AST/SGOT 51 U/L (<34); BILIRUBIN,DIRECT 0.3 MG/DL (<0.4); BILIRUBIN,TOTAL 0.7 MG/DL (0.3-1.2); BLOOD UREA NITROGEN 20 MG/DL (9-23); CALCIUM LEVEL 8.6 MG/DL (8.3-10.6); CARBON DIOXIDE LEVEL 26 MMOL/L (20-31); CHLORIDE LEVEL 105 MMOL/L (98-107); CREATININE FOR GFR 0.48 MG/DL (0.70-1.30); GLOMERULAR FILTRATION RATE > 60.0 (>42); GLUCOSE, FASTING 109 MG/DL (74-106); SODIUM LEVEL 139 MMOL/L (136-145); TOTAL PROTEIN 6.5 G/DL (5.7-8.2)
[2023-03-08] MEDS: ENOXAPARIN 40MG/0.4ML SYRINGE (J1650 PER 10MG) SC SCH (07:33)
[2023-03-08] MEDS: INSULIN LISPRO (NovoLOG) PER UNIT SC SCH ×4 (07:34→20:25)
[2023-03-08] MEDS: ESCITALOPRAM OXALATE 5MG TABLET (LEXAPRO) PO SCH (12:45)
[2023-03-08] MEDS ORDERED: METOPROLOL SUCC *XL* 25MG TAB (TopROL *XL*) PO SCH (12:45)
[2023-03-08] MEDS: LEVOTHYROXINE 125MCG TABLET (0.125MG) PO SCH (14:16)
[2023-03-08] MEDS: ASPIRIN 81MG ENTERIC TABLET PO SCH (14:16)
[2023-03-08] MEDS: OMEPRAZOLE 20MG CAP PO SCH ×2 (14:17→20:25)
[2023-03-08] MEDS: METOPROLOL TART 25 MG TABLET PO SCH (20:24)
[2023-03-08] MEDS ORDERED: TAMSULOSIN 0.4 MG CAP PO SCH (21:00)
[2023-03-08] MEDS ORDERED: ATORVASTATIN 20 MG TAB PO SCH (21:00)
[2023-03-08] MEDS ORDERED: lisinopriL 5 MG TAB PO SCH (21:00)
[2023-03-08] MEDS ORDERED: MIRTAZAPINE 7.5MG PER 1/2 TABLET PO SCH (21:00)
[2023-03-09 01:40] VITALS: BP 136/71; TEMP 97.2; O2SAT 94
[2023-03-09 04:40] VITALS: BP 135/71; TEMP 97.2; O2SAT 90
[2023-03-09 05:42] VITALS: BP 135/71
[2023-03-09] MEDS: METOPROLOL TART 25 MG TABLET PO SCH ×2 (05:42)
[2023-03-09] MEDS: LEVOTHYROXINE 125MCG TABLET (0.125MG) PO SCH (05:51)
[2023-03-09] MEDS: REMDESIVIR 100 MG in NS 250 ML IV SCH (05:51)
[2023-03-09 06:00] VITALS: O2SAT 91
[2023-03-09 06:04] LABS: BLOOD UREA NITROGEN 22 MG/DL (9-23); CALCIUM LEVEL 8.4 MG/DL (8.3-10.6); CARBON DIOXIDE LEVEL 28 MMOL/L (20-31); CHLORIDE LEVEL 106 MMOL/L (98-107); CREATININE FOR GFR 0.44 MG/DL (0.70-1.30); GLOMERULAR FILTRATION RATE > 60.0 (>42); GLUCOSE, FASTING 97 MG/DL (74-106); POTASSIUM SERUM 3.9 MMOL/L (3.5-5.1); SODIUM LEVEL 141 MMOL/L (136-145)
[2023-03-09] MEDS: INSULIN LISPRO (NovoLOG) PER UNIT SC SCH ×2 (07:11→12:00)
[2023-03-09] MEDS ORDERED: NIRMATRELVIR/RITONAVIR CO-PACK (EMERGENCY USE AUTH) PO SCH (09:00)
[2023-03-09] MEDS ORDERED: predniSONE 20 MG TAB PO SCH (09:00)
[2023-03-09] MEDS: ENOXAPARIN 40MG/0.4ML SYRINGE (J1650 PER 10MG) SC SCH (09:50)
[2023-03-09] MEDS: ESCITALOPRAM OXALATE 5MG TABLET (LEXAPRO) PO SCH (09:50)
[2023-03-09] MEDS: ASPIRIN 81MG ENTERIC TABLET PO SCH (09:50)
[2023-03-09] MEDS: OMEPRAZOLE 20MG CAP PO SCH (09:50)
[2023-03-09] MEDS ORDERED: NIRM1TAB PO (10:22)
== END 2023-03-09 12:29 | disposition home or self-care (01) | DRG 871 ==
LOC: EDBD 23:28 → M ED 23:28 → M ED INP 03-07 02:29 → M MSPAV 03-07 03:37
PROVIDERS: ADMIT Internal Medicine; ATTEND General Practice
PROC: 3E0333Z Introduction of Anti-inflammatory into Peripheral Vein, Percutaneous Approach (ICD-10-PCS; principal; 2023-03-07)
PROC: XW033E5 Introduction of Remdesivir Anti-infective into Peripheral Vein, Percutaneous Approach, New Technology Group 5 (ICD-10-PCS; 2023-03-07)
DX: A41.89 Other specified sepsis (principal); U07.1 COVID-19; J12.82 Pneumonia due to coronavirus disease 2019; J96.01 Acute respiratory failure with hypoxia; K21.9 Gastro-esophageal reflux disease without esophagitis; I16.0 Hypertensive urgency; R73.03 Prediabetes; N40.0 Benign prostatic hyperplasia without lower urinary tract symptoms; F32.A Depression, unspecified; I10 Essential (primary) hypertension; E03.9 Hypothyroidism, unspecified; E78.00 Pure hypercholesterolemia, unspecified; Z87.891 Personal history of nicotine dependence; Z79.82 Long term (current) use of aspirin; Z79.890 Hormone replacement therapy; Z79.899 Other long term (current) drug therapy

== ENCOUNTER → 2023-11-26 | Outpatient (CLI) | payer MEDICARE ==
[~2023-11-26] MED LIST changes: -ASPI-161 PO; +ASPI-615 PO; +NIRM1TAB PO; +TURM500C PO; +VITA1CAP14 PO
== END ==
LOC: M PLAIMG 08:20
PROVIDERS: ATTEND Internal Medicine
DX: R41.81 Age-related cognitive decline (principal)

== ENCOUNTER → 2024-07-06 | Outpatient (CLI) | payer MEDICARE ==
[~2024-07-06] MED LIST changes: -FLOM0.4C39 PO; +TAMS-18 PO
== END ==
LOC: M PLAIMG 09:28
PROVIDERS: ATTEND Internal Medicine
DX: M54.59 Other low back pain (principal); M25.561 Pain in right knee

== ENCOUNTER → 2024-09-22 | Outpatient (REF) | payer MEDICARE ==
[~2024-09-22] MED LIST changes: +AMLO1TAB24 PO; +B12-1CHW PO; +CO Q10CA PO; +COQ150CA3 PO; +LOSA-527 PO; +TAMS1CAP17 PO
[2024-09-22 18:54] LABS: CALCIUM LEVEL 9.4 MG/DL (8.3-10.6); CARBON DIOXIDE LEVEL 26 MMOL/L (20-31); CHLORIDE LEVEL 91 MMOL/L (98-107); CREATININE FOR GFR 0.41 MG/DL (0.70-1.30); GLOMERULAR FILTRATION RATE > 90.0 (>42); POTASSIUM SERUM 4.7 MMOL/L (3.5-5.1); SODIUM LEVEL 128 MMOL/L (136-145)
== END ==
LOC: M SHH 17:27 → M LAB REF 17:27
PROVIDERS: ATTEND Internal Medicine
DX: E87.1 Hypo-osmolality and hyponatremia (principal); R53.1 Weakness

== ENCOUNTER 2024-10-11 07:56 | Inpatient (IN) | payer MEDICARE ==
[~2024-10-11] VITALS: Ht 172.7 cm; Wt 86.7 kg
[2024-10-11] MEDS ORDERED: MIRT1TAB (08:26)
[2024-10-11] MEDS ORDERED: ATIV1TAB10 PO (08:26)
[2024-10-11] MEDS ORDERED: FURO20TA2 PO (08:26)
[2024-10-11 09:18] LABS: KETONE, URINE AUTO RFX NEGATIVE (NEGATIVE); LEUKOCYTE ESTERASE UR AUTO RFX NEGATIVE (NEGATIVE); MUCUS, URINE RFX SMALL (NEGATIVE); NITRITE, URINE AUTO RFX NEGATIVE (NEGATIVE); RBC, URINE AUTO RFX 0 /HPF (0-3); SQUAM EPITHELIAL CELL UR AURFX 0 /HPF (0-6); WBC, URINE AUTO RFX 1 /HPF (0-3)
[2024-10-11 09:19] LABS: BASO # 0.0 10^3/uL (0.0-0.2); BASO % 0.5 % (0.0-1.0); EOS # 0.0 10^3/uL (0.0-0.5); EOS % 0.5 % (0.0-3.0); LYMPH # 1.2 10^3/uL (1.5-5.0); LYMPH % 20.2 % (24.0-44.0); MONO # 0.6 10^3/uL (0.0-0.8); MONO % 11.0 % (2.0-8.0); NEUTROPHILS # 3.9 10^3/uL (1.5-8.5); NEUTROPHILS % 67.5 % (36.0-66.0); PLATELET COUNT, AUTOMATED 348 10^3/uL (150-450)
[2024-10-11 09:21] LABS: SODIUM,RANDOM URINE 49.0 MMOL/L
[2024-10-11 09:33] LABS: FREE T4 1.23 NG/DL (0.89-1.76); OSMOLALITY SERUM 246 MOSM/KG (280-301)
[2024-10-11 09:45] LABS: CALCIUM LEVEL 9.2 MG/DL (8.3-10.6); CARBON DIOXIDE LEVEL 27 MMOL/L (20-31); CHLORIDE LEVEL 78 MMOL/L (98-107); CPK CREATINE PHOSPHOKINASE 756 U/L (46-171); CREATININE FOR GFR 0.35 MG/DL (0.70-1.30); GLOMERULAR FILTRATION RATE > 90.0 (>42); MAGNESIUM LEVEL 1.7 MG/DL (1.8-2.4); POTASSIUM SERUM 3.8 MMOL/L (3.5-5.1); SODIUM LEVEL 118 MMOL/L (136-145)
[2024-10-11] MEDS ORDERED: SODI1TAB12 PO (10:45)
[2024-10-11] MEDS ORDERED: TRAZ-252 PO (10:45)
[2024-10-11] MEDS ORDERED: HOME MED LIST COMPLETE! XX SCH (10:50)
[2024-10-11] MEDS: SODIUM CHLORIDE 3% 500 ML IV ONE ×2 (12:10→13:07)
[2024-10-11] MEDS ORDERED: SODIUM CHLORIDE 1 GM TAB PO SCH (12:30)
[2024-10-11 13:00] VITALS: BP 178/84; TEMP 97.2; O2SAT 97
[2024-10-11] MEDS: ACETAMINOPHEN 325 MG TAB PO PRN (14:11)
[2024-10-11 16:00] VITALS: BP 171/81; TEMP 98; O2SAT 95
[2024-10-11] MEDS: LORazepam 0.5 MG TAB PO PRN (16:31)
[2024-10-11] MEDS: MAGNESIUM OXIDE 400 MG TAB PO SCH (16:32)
[2024-10-11 16:44] LABS: CALCIUM LEVEL 9.0 MG/DL (8.3-10.6); CARBON DIOXIDE LEVEL 25 MMOL/L (20-31); CHLORIDE LEVEL 83 MMOL/L (98-107); CREATININE FOR GFR 0.31 MG/DL (0.70-1.30); GLOMERULAR FILTRATION RATE > 90.0 (>42); POTASSIUM SERUM 3.3 MMOL/L (3.5-5.1); SODIUM LEVEL 121 MMOL/L (136-145)
[2024-10-11] MEDS: KETOROLAC 30 MG/ML 1 ML VIAL IV ONE (17:57)
[2024-10-11] MEDS: POTASSIUM CHLORIDE 10MEQ SR TABLET PO ONE (17:57)
[2024-10-11 20:00] VITALS: BP 137/72; TEMP 98.2; O2SAT 96
[2024-10-11] MEDS: OMEPRAZOLE 20MG CAP PO SCH (20:10)
[2024-10-11] MEDS: ATORVASTATIN 20 MG TAB PO SCH (20:10)
[2024-10-11] MEDS: traZODone 50 MG TAB PO SCH (20:10)
[2024-10-11] MEDS: DOCUSATE SODIUM 100 MG CAPSULE PO SCH (20:11)
[2024-10-11] MEDS: TAMSULOSIN 0.4 MG CAP PO SCH (20:11)
[2024-10-11 23:10] LABS: CALCIUM LEVEL 8.8 MG/DL (8.3-10.6); CARBON DIOXIDE LEVEL 26 MMOL/L (20-31); CHLORIDE LEVEL 86 MMOL/L (98-107); CREATININE FOR GFR 0.28 MG/DL (0.70-1.30); GLOMERULAR FILTRATION RATE > 90.0 (>42); POTASSIUM SERUM 3.3 MMOL/L (3.5-5.1); SODIUM LEVEL 123 MMOL/L (136-145)
[2024-10-12] VITALS (7 sets, daily range): BP systolic 136–182; BP diastolic 75–98; TEMP 97.5–98.6; O2SAT 95–97
[2024-10-12] MEDS: SODIUM CHLORIDE 3% 500 ML IV SCH (02:51)
[2024-10-12 04:36] LABS: BASO # 0.0 10^3/uL (0.0-0.2); BASO % 0.8 % (0.0-1.0); EOS # 0.1 10^3/uL (0.0-0.5); EOS % 2.0 % (0.0-3.0); LYMPH # 1.6 10^3/uL (1.5-5.0); LYMPH % 30.3 % (24.0-44.0); MONO # 0.8 10^3/uL (0.0-0.8); MONO % 15.9 % (2.0-8.0); NEUTROPHILS # 2.6 10^3/uL (1.5-8.5); NEUTROPHILS % 50.8 % (36.0-66.0); PLATELET COUNT, AUTOMATED 309 10^3/uL (150-450)
[2024-10-12] MEDS: LEVOTHYROXINE 125 MCG TABLET (0.125 MG) PO SCH (05:08)
[2024-10-12 05:09] LABS: CALCIUM LEVEL 8.8 MG/DL (8.3-10.6); CARBON DIOXIDE LEVEL 26 MMOL/L (20-31); CHLORIDE LEVEL 90 MMOL/L (98-107); CREATININE FOR GFR 0.32 MG/DL (0.70-1.30); GLOMERULAR FILTRATION RATE > 90.0 (>42); POTASSIUM SERUM 3.4 MMOL/L (3.5-5.1); SODIUM LEVEL 127 MMOL/L (136-145)
[2024-10-12] MEDS: POTASSIUM CHLORIDE 10MEQ SR TABLET PO ONE (05:23)
[2024-10-12] MEDS: D5W 250 ML IV SCH (05:24)
[2024-10-12] MEDS: POTASSIUM CHLORIDE 10MEQ SR TABLET PO SCH (09:35)
[2024-10-12] MEDS: METOPROLOL SUCC. 25 MG *XL* TAB PO SCH (09:36)
[2024-10-12 10:31] LABS: CALCIUM LEVEL 9.2 MG/DL (8.3-10.6); CARBON DIOXIDE LEVEL 28 MMOL/L (20-31); CHLORIDE LEVEL 90 MMOL/L (98-107); CREATININE FOR GFR 0.32 MG/DL (0.70-1.30); GLOMERULAR FILTRATION RATE > 90.0 (>42); POTASSIUM SERUM 4.2 MMOL/L (3.5-5.1); SODIUM LEVEL 128 MMOL/L (136-145)
[2024-10-12] MEDS: D5W 1000 ML IV ONE (14:13)
[2024-10-12 16:40] LABS: CALCIUM LEVEL 9.3 MG/DL (8.3-10.6); CARBON DIOXIDE LEVEL 27 MMOL/L (20-31); CHLORIDE LEVEL 94 MMOL/L (98-107); CREATININE FOR GFR 0.30 MG/DL (0.70-1.30); GLOMERULAR FILTRATION RATE > 90.0 (>42); POTASSIUM SERUM 4.2 MMOL/L (3.5-5.1); SODIUM LEVEL 129 MMOL/L (136-145)
[2024-10-12] MEDS: amLODIPine 10 MG TAB PO ONE (17:40)
[2024-10-12 22:53] LABS: CALCIUM LEVEL 9.5 MG/DL (8.3-10.6); CARBON DIOXIDE LEVEL 24 MMOL/L (20-31); CHLORIDE LEVEL 93 MMOL/L (98-107); CREATININE FOR GFR 0.34 MG/DL (0.70-1.30); GLOMERULAR FILTRATION RATE > 90.0 (>42); POTASSIUM SERUM 4.6 MMOL/L (3.5-5.1); SODIUM LEVEL 128 MMOL/L (136-145)
[2024-10-13] VITALS: BP 136/80; TEMP 98; O2SAT 94
[2024-10-13 04:00] VITALS: BP 145/90; TEMP 97.2; O2SAT 92
[2024-10-13 05:08] LABS: BASO # 0.1 10^3/uL (0.0-0.2); BASO % 1.5 % (0.0-1.0); EOS # 0.1 10^3/uL (0.0-0.5); EOS % 2.0 % (0.0-3.0); LYMPH # 1.9 10^3/uL (1.5-5.0); LYMPH % 35.4 % (24.0-44.0); MONO # 0.8 10^3/uL (0.0-0.8); MONO % 14.2 % (2.0-8.0); NEUTROPHILS # 2.5 10^3/uL (1.5-8.5); NEUTROPHILS % 46.5 % (36.0-66.0); PLATELET COUNT, AUTOMATED 319 10^3/uL (150-450)
[2024-10-13 05:19] LABS: CALCIUM LEVEL 9.3 MG/DL (8.3-10.6); CARBON DIOXIDE LEVEL 26 MMOL/L (20-31); CHLORIDE LEVEL 95 MMOL/L (98-107); CREATININE FOR GFR 0.34 MG/DL (0.70-1.30); GLOMERULAR FILTRATION RATE > 90.0 (>42); POTASSIUM SERUM 4.5 MMOL/L (3.5-5.1); SODIUM LEVEL 131 MMOL/L (136-145)
[2024-10-13] MEDS ORDERED: AMLO1TAB25 PO (07:32)
[2024-10-13] MEDS ORDERED: MAGN400T33 PO (07:32)
[2024-10-13] MEDS ORDERED: POTA-136 PO (07:32)
[2024-10-13] MEDS ORDERED: LASI20TA3 PO (07:58)
[2024-10-13 08:00] VITALS: BP 143/82; TEMP 98; O2SAT 96
[2024-10-13] MEDS: SODIUM CHLORIDE 1 GM TAB PO SCH (08:00)
[2024-10-13] MEDS: SODIUM CHLORIDE 1 GM TAB PO ONE (08:57)
[2024-10-13] MEDS: POTASSIUM CHLORIDE 10MEQ SR TABLET PO SCH (08:57)
[2024-10-13] MEDS: amLODIPine 10 MG TAB PO SCH (08:58)
[2024-10-13] MEDS: FUROSEMIDE 20 MG TAB PO ONE (08:58)
[2024-10-13 11:03] LABS: CALCIUM LEVEL 10.0 MG/DL (8.3-10.6); CARBON DIOXIDE LEVEL 26 MMOL/L (20-31); CHLORIDE LEVEL 91 MMOL/L (98-107); CREATININE FOR GFR 0.35 MG/DL (0.70-1.30); GLOMERULAR FILTRATION RATE > 90.0 (>42); POTASSIUM SERUM 4.3 MMOL/L (3.5-5.1); SODIUM LEVEL 131 MMOL/L (136-145)
[2024-10-13] MEDS ORDERED: SODIUM CHLORIDE 1 GM TAB PO SCH (12:30)
[2024-10-13 16:00] VITALS: BP 164/88; TEMP 97.7; O2SAT 95
[2024-10-13 20:15] VITALS: BP 175/90; TEMP 97.1; O2SAT 94
[2024-10-14 00:21] VITALS: BP 157/82; TEMP 97.3; O2SAT 96
[2024-10-14 04:00] VITALS: BP 167/91; TEMP 97.6; O2SAT 95
[2024-10-14 04:56] LABS: BASO # 0.1 10^3/uL (0.0-0.2); BASO % 1.5 % (0.0-1.0); EOS # 0.2 10^3/uL (0.0-0.5); EOS % 2.6 % (0.0-3.0); LYMPH # 2.4 10^3/uL (1.5-5.0); LYMPH % 35.0 % (24.0-44.0); MONO # 0.8 10^3/uL (0.0-0.8); MONO % 11.9 % (2.0-8.0); NEUTROPHILS # 3.4 10^3/uL (1.5-8.5); NEUTROPHILS % 48.7 % (36.0-66.0); PLATELET COUNT, AUTOMATED 331 10^3/uL (150-450)
[2024-10-14 07:36] VITALS: BP 166/86; TEMP 97.4; O2SAT 96
[2024-10-14] MEDS ORDERED: PILL CUTTER 1 EACH XX PRN (08:30)
[2024-10-14] MEDS: FUROSEMIDE 20 MG TAB PO SCH (09:22)
[2024-10-14 09:24] LABS: CALCIUM LEVEL 9.4 MG/DL (8.3-10.6); CARBON DIOXIDE LEVEL 24 MMOL/L (20-31); CHLORIDE LEVEL 94 MMOL/L (98-107); CREATININE FOR GFR 0.33 MG/DL (0.70-1.30); GLOMERULAR FILTRATION RATE > 90.0 (>42); MAGNESIUM LEVEL 1.9 MG/DL (1.8-2.4); PHOSPHORUS LEVEL 3.3 MG/DL (2.4-5.1); POTASSIUM SERUM 4.4 MMOL/L (3.5-5.1); SODIUM LEVEL 129 MMOL/L (136-145)
[2024-10-14] MEDS: ACETAMINOPHEN 500 MG TAB PO ONE ×2 (09:24→17:41)
[2024-10-14] MEDS: METOPROLOL SUCC. 25 MG *XL* TAB PO ONE (09:26)
[2024-10-14] MEDS: ANALGESIC BALM CRM 3 OZ TOP SCH (13:00)
[2024-10-14] MEDS: LIDOCAINE 5% OINT 30 GM TUBE TOP SCH (14:02)
[2024-10-14 15:08] VITALS: BP 156/83; TEMP 97.9; O2SAT 95
[2024-10-14] MEDS: ACETAMINOPHEN 500 MG TAB PO PRN (17:01)
[2024-10-14] MEDS: **hydrALAZINE HCL** 25 MG TAB PO ONE (17:45)
[2024-10-14 20:09] VITALS: BP 157/86; TEMP 97.9; O2SAT 100
[2024-10-14] MEDS: METOPROLOL SUCC *XL* 12.5 MG PER 1/2 TAB PO ONE (20:43)
[2024-10-15] MEDS: ACETAMINOPHEN 500 MG TAB PO SCH
[2024-10-15 03:57] VITALS: BP 141/86; TEMP 98.1; O2SAT 96
[2024-10-15 07:26] LABS: BASO # 0.1 10^3/uL (0.0-0.2); BASO % 1.5 % (0.0-1.0); EOS # 0.2 10^3/uL (0.0-0.5); EOS % 2.8 % (0.0-3.0); LYMPH # 2.6 10^3/uL (1.5-5.0); LYMPH % 42.2 % (24.0-44.0); MONO # 0.7 10^3/uL (0.0-0.8); MONO % 11.5 % (2.0-8.0); NEUTROPHILS # 2.5 10^3/uL (1.5-8.5); NEUTROPHILS % 41.5 % (36.0-66.0); PLATELET COUNT, AUTOMATED 327 10^3/uL (150-450)
[2024-10-15] MEDS: METOPROLOL SUCC. 50 MG *XL* TAB PO SCH (08:26)
[2024-10-15 10:58] LABS: CALCIUM LEVEL 9.5 MG/DL (8.3-10.6); CARBON DIOXIDE LEVEL 24 MMOL/L (20-31); CHLORIDE LEVEL 93 MMOL/L (98-107); CREATININE FOR GFR 0.38 MG/DL (0.70-1.30); GLOMERULAR FILTRATION RATE > 90.0 (>42); POTASSIUM SERUM 4.6 MMOL/L (3.5-5.1); SODIUM LEVEL 130 MMOL/L (136-145)
[2024-10-15 12:00] VITALS: BP 113/69; TEMP 97.3; O2SAT 93
[2024-10-15 12:16] VITALS: BP 80/60; TEMP 97.2; O2SAT 96
[2024-10-15] MEDS: MIDODRINE 5 MG TAB PO ONE (12:32)
[2024-10-15] MEDS: LR 1,000 ML IV ONE (12:33)
[2024-10-15 13:39] VITALS: BP 130/78
[2024-10-15 19:48] VITALS: BP 140/80; TEMP 97.9; O2SAT 95
[2024-10-16 03:57] VITALS: BP 142/82; TEMP 97.7; O2SAT 95
[2024-10-16 05:31] LABS: BASO # 0.1 10^3/uL (0.0-0.2); BASO % 2.3 % (0.0-1.0); EOS # 0.2 10^3/uL (0.0-0.5); EOS % 4.2 % (0.0-3.0); LYMPH # 2.4 10^3/uL (1.5-5.0); LYMPH % 45.0 % (24.0-44.0); MONO # 0.6 10^3/uL (0.0-0.8); MONO % 11.0 % (2.0-8.0); NEUTROPHILS # 2.0 10^3/uL (1.5-8.5); NEUTROPHILS % 36.9 % (36.0-66.0); PLATELET COUNT, AUTOMATED 300 10^3/uL (150-450)
[2024-10-16 06:35] LABS: CALCIUM LEVEL 9.5 MG/DL (8.3-10.6); CARBON DIOXIDE LEVEL 23 MMOL/L (20-31); CHLORIDE LEVEL 93 MMOL/L (98-107); CREATININE FOR GFR 0.35 MG/DL (0.70-1.30); GLOMERULAR FILTRATION RATE > 90.0 (>42); POTASSIUM SERUM 4.6 MMOL/L (3.5-5.1); SODIUM LEVEL 127 MMOL/L (136-145)
[2024-10-16] MEDS: METOPROLOL SUCC. 25 MG *XL* TAB PO SCH (08:28)
[2024-10-16] MEDS ORDERED: TOPR25TA PO (10:48)
[2024-10-16 11:37] VITALS: BP 127/74; TEMP 97.3; O2SAT 96
[2024-10-16] MEDS: METOPROLOL TART 12.5 MG PER 1/2 TAB PO ONE (11:44)
[2024-10-16 19:22] VITALS: BP 146/79; TEMP 97.9; O2SAT 94
[2024-10-17 03:47] VITALS: BP 122/67; TEMP 97.5; O2SAT 94
[2024-10-17 06:27] LABS: BASO # 0.1 10^3/uL (0.0-0.2); BASO % 1.0 % (0.0-1.0); EOS # 0.2 10^3/uL (0.0-0.5); EOS % 2.2 % (0.0-3.0); LYMPH # 2.9 10^3/uL (1.5-5.0); LYMPH % 34.5 % (24.0-44.0); MONO # 0.8 10^3/uL (0.0-0.8); MONO % 9.2 % (2.0-8.0); NEUTROPHILS # 4.4 10^3/uL (1.5-8.5); NEUTROPHILS % 52.9 % (36.0-66.0); PLATELET COUNT, AUTOMATED 318 10^3/uL (150-450)
[2024-10-17 07:04] LABS: CALCIUM LEVEL 9.7 MG/DL (8.3-10.6); CARBON DIOXIDE LEVEL 25 MMOL/L (20-31); CHLORIDE LEVEL 95 MMOL/L (98-107); CREATININE FOR GFR 0.39 MG/DL (0.70-1.30); GLOMERULAR FILTRATION RATE > 90.0 (>42); POTASSIUM SERUM 4.7 MMOL/L (3.5-5.1); SODIUM LEVEL 129 MMOL/L (136-145)
[2024-10-17 18:56] LABS: CALCIUM LEVEL 9.6 MG/DL (8.3-10.6); CARBON DIOXIDE LEVEL 28 MMOL/L (20-31); CHLORIDE LEVEL 96 MMOL/L (98-107); CREATININE FOR GFR 0.39 MG/DL (0.70-1.30); GLOMERULAR FILTRATION RATE > 90.0 (>42); POTASSIUM SERUM 4.8 MMOL/L (3.5-5.1); SODIUM LEVEL 133 MMOL/L (136-145)
[2024-10-18 05:23] VITALS: BP 153/84; TEMP 97.7; O2SAT 94
[2024-10-18 06:32] LABS: BASO # 0.1 10^3/uL (0.0-0.2); BASO % 1.6 % (0.0-1.0); EOS # 0.2 10^3/uL (0.0-0.5); EOS % 2.4 % (0.0-3.0); LYMPH # 2.8 10^3/uL (1.5-5.0); LYMPH % 44.0 % (24.0-44.0); MONO # 0.6 10^3/uL (0.0-0.8); MONO % 10.2 % (2.0-8.0); NEUTROPHILS # 2.6 10^3/uL (1.5-8.5); NEUTROPHILS % 41.5 % (36.0-66.0); PLATELET COUNT, AUTOMATED 306 10^3/uL (150-450)
[2024-10-18 07:00] LABS: CALCIUM LEVEL 9.6 MG/DL (8.3-10.6); CARBON DIOXIDE LEVEL 27 MMOL/L (20-31); CHLORIDE LEVEL 94 MMOL/L (98-107); CREATININE FOR GFR 0.39 MG/DL (0.70-1.30); GLOMERULAR FILTRATION RATE > 90.0 (>42); POTASSIUM SERUM 4.6 MMOL/L (3.5-5.1); SODIUM LEVEL 132 MMOL/L (136-145)
[2024-10-18] MEDS ORDERED: METOPROLOL TART 25 MG TABLET PO SCH (09:00)
[2024-10-18] MEDS ORDERED: METOPROLOL SUCC. 25 MG *XL* TAB PO SCH (09:00)
[2024-10-18] MEDS ORDERED: PILL CUTTER 1 EACH XX PRN (09:10)
[2024-10-18] MEDS: METOPROLOL SUCC *XL* 12.5 MG PER 1/2 TAB PO ONE (11:52)
[2024-10-19 04:44] VITALS: BP 160/86; TEMP 97.5; O2SAT 95
[2024-10-19 08:02] LABS: CALCIUM LEVEL 9.6 MG/DL (8.3-10.6); CARBON DIOXIDE LEVEL 25 MMOL/L (20-31); CHLORIDE LEVEL 98 MMOL/L (98-107); CREATININE FOR GFR 0.37 MG/DL (0.70-1.30); GLOMERULAR FILTRATION RATE > 90.0 (>42); POTASSIUM SERUM 4.5 MMOL/L (3.5-5.1); SODIUM LEVEL 133 MMOL/L (136-145)
[2024-10-19 08:32] VITALS: BP 136/87
[2024-10-19] MEDS: METOPROLOL SUCC. 25 MG *XL* TAB PO SCH (08:32)
== END 2024-10-19 13:32 | DRG 643 ==
LOC: EDBD 07:56 → M ED 07:56 → M ED INP 10:24 → M ICU 12:37 → M MSPAV 10-14 14:36
PROVIDERS: ADMIT Internal Medicine Nephrology; ATTEND General Practice
DX: E22.2 Syndrome of inappropriate secretion of antidiuretic hormone (principal); G93.41 Metabolic encephalopathy; E03.9 Hypothyroidism, unspecified; E11.9 Type 2 diabetes mellitus without complications; I10 Essential (primary) hypertension; E78.5 Hyperlipidemia, unspecified; F32.A Depression, unspecified; N40.1 Benign prostatic hyperplasia with lower urinary tract symptoms; F41.9 Anxiety disorder, unspecified; K21.9 Gastro-esophageal reflux disease without esophagitis; I35.0 Nonrheumatic aortic (valve) stenosis; E83.42 Hypomagnesemia; Z79.890 Hormone replacement therapy; Z86.16 Personal history of COVID-19; Z87.891 Personal history of nicotine dependence; Z79.899 Other long term (current) drug therapy; I16.0 Hypertensive urgency; I45.10 Unspecified right bundle-branch block; I44.0 Atrioventricular block, first degree; I95.9 Hypotension, unspecified; T46.5X5A Adverse effect of other antihypertensive drugs, initial encounter; M54.50 Low back pain, unspecified; G89.29 Other chronic pain; R26.89 Other abnormalities of gait and mobility; R29.6 Repeated falls

== ENCOUNTER → 2024-11-13 | Outpatient (REF) | payer MEDICARE ==
[~2024-11-13] MED LIST changes: +ATIV1TAB10 PO; +FURO20TA2 PO; +LASI20TA3 PO; +MAGN400T33 PO; +MIRT1TAB; +POTA-136 PO; +SODI1TAB12 PO; +TOPR25TA PO; +TRAZ-252 PO
[2024-11-13 14:28] LABS: CALCIUM LEVEL 9.6 MG/DL (8.3-10.6); CARBON DIOXIDE LEVEL 25 MMOL/L (20-31); CHLORIDE LEVEL 89 MMOL/L (98-107); CREATININE FOR GFR 0.46 MG/DL (0.70-1.30); GLOMERULAR FILTRATION RATE > 90.0 (>42); MAGNESIUM LEVEL 2.0 MG/DL (1.8-2.4); POTASSIUM SERUM 4.4 MMOL/L (3.5-5.1); SODIUM LEVEL 125 MMOL/L (136-145)
== END ==
LOC: M SHH 12:47
PROVIDERS: ATTEND Internal Medicine
DX: E87.1 Hypo-osmolality and hyponatremia (principal)

== ENCOUNTER → 2024-11-19 | Outpatient (REF) | payer MEDICARE ==
[~2024-11-19] MED LIST changes: +BUSP5TA PO; +DIGO0.123 PO; +ECOT81TA5 PO; +ELIQ5TAB PO; +FURO40TA2 PO; +LOSA25TA13 PO; +LOSA50TA28 PO; +MAG-400T7 PO; +METO1TAB87 PO; +POTA-150 PO
[2024-11-19 12:14] LABS: CALCIUM LEVEL 9.1 MG/DL (8.3-10.6); CARBON DIOXIDE LEVEL 25 MMOL/L (20-31); CHLORIDE LEVEL 92 MMOL/L (98-107); CREATININE FOR GFR 0.38 MG/DL (0.70-1.30); GLOMERULAR FILTRATION RATE > 90.0 (>42); MAGNESIUM LEVEL 1.9 MG/DL (1.8-2.4); POTASSIUM SERUM 4.4 MMOL/L (3.5-5.1); SODIUM LEVEL 127 MMOL/L (136-145)
== END ==
LOC: M LAB REF 11:18 → M SHH 11:18
PROVIDERS: ATTEND Internal Medicine
DX: E87.1 Hypo-osmolality and hyponatremia (principal)